=== PATIENT | male | born 1950 | race Caucasian/White ===

== ENCOUNTER 2017-04-27 15:32 | Observation (INO) | payer MEDICARE, OTHER ==
--- NOTE | 2017-04-27 16:51 | RAD ---
Indication: Dizziness. Single frontal view of the chest performed at 1637 hours was reviewed. Comparison is made with previous exam dated November 04, 2005. No mediastinal shift is noted. Heart is of normal size and configuration. Lung whitt appear clear. Lung whitt appear hyperinflated. IMPRESSION: NO ACTIVE CARDIOPULMONARY DISEASE IS NOTED.
[2017-04-27] MEDS ORDERED: NS 0.9% 1000 ML* 2,000 ML IV ONE (17:02)
[2017-04-27] MEDS: NS 0.9% 1000 ML* 1,000 ML IV SCH (17:30)
[2017-04-27 17:33] LABS: Hematocrit 41 % (42-52); Hemoglobin 13.7 g/dl (14.0-18.0); Mean Corpuscular HGB Conc 34 g/dl (31-36); Mean Corpuscular Hemoglobin 32 pg (27-31); Mean Corpuscular Volume 94 fL (80-94); Mean Platelet Volume 8 um3 (7.4-10.4); Red Blood Count 4.33 10^6/ul (4.0-5.4); Red Cell Distribution Width 14 % (10.5-15); White Blood Count 9.2 10^3/ul (3.5-10.8)
[2017-04-27 17:49] LABS: ALT 60 U/L (7-52); AST 47 U/L (13-39); Albumin 4.3 g/dL (3.2-5.2); Alkaline Phosphatase 53 U/L (34-104); Anion Gap 7 mmol/L (2-11); BUN/Creatinine Ratio 15.9 (8-20); Blood Urea Nitrogen 13 mg/dL (6-24); C Reactive Protein < 1.00 mg/L (< 5.00); CO2 Carbon Dioxide 27 mmol/L (22-32); Calcium 9.3 mg/dL (8.6-10.3); Chloride 106 mmol/L (101-111); EGFR African American 121.3 (>60); EGFR Non-African American 94.3 (>60); Globulin 2.7 g/dL (2-4); Glucose 99 mg/dL (70-100); Lipase 18 U/L (11.0-82.0); Magnesium 1.9 mg/dL (1.9-2.7); Potassium 4.1 mmol/L (3.5-5.0); Sodium 140 mmol/L (133-145)
[2017-04-27 18:18] LABS: TSH (Thyroid Stimulating Horm) 0.73 mcIU/mL (0.34-5.60)
[2017-04-27] MEDS ORDERED: NS 0.9% 1000 ML* 1,000 ML IV ONE (20:00)
[2017-04-27 20:52] LABS: Urine Bilirubin Negative (Negative); Urine Glucose Negative (Negative); Urine Nitrite Negative (Negative)
--- NOTE | 2017-04-27 21:38 | ED ---
Ghanshyam Arce Benjamin, scribed for Roderick Greco MD on 04/27/17 at 1714 . Syncope/Near Syncope - HPI Summary HPI Summary: 66yo male comes to ED after having a near syncopal episode today around 14:30 shortly after sudden position change from sitting to standing exertion. However , pt states that he didnt actually pass out. Pt also felt like heart racing, was shaking and having tremors, which have all lasted about 30 minutes. Per , pt was shaking so bad that he couldnt even sign his name on the paper. Per , pt had another near syncopal episode when he got off his car upon arrival to the hospital today. Pt also reports having unexplained diarrhea for the last couple of month, with the his last diarrhea being last week. Pt denies seeing any blood in his bowel. No acute rash or leg swelling reported. - History Of Current Complaint Chief Complaint: EDDizziness Time Seen by Provider: 04/27/17 16:39 Hx Obtained From: Patient, Family/Supervising Chef - Onset/Duration: Sudden Onset, Lasting Minutes - 30 min, Resolved Timing: Intermittent Episode Lasting - 30 min Context: Unwitnessed - first episode, Witnessed - second episode witnessed by Activity At Onset: Exertion Associated Head Trauma: No Aggravating Factor(s): Position Change, Exertion Alleviating Factor(s): Spontaneous Resolution, Rest Associated Signs And Symptoms: Other - tunneled vision - Allergies/Home Medications Allergies/Adverse Reactions: Allergies Allergy/AdvReac Type Severity Reaction Status Date / Time Mepivacaine [From Carbocaine] Allergy Unknown Verified 06/06/16 19:20 Reaction Details PMH/Surg Hx/FS Hx/Imm Hx Cardiovascular History: Denies: Hx Hypertension Infectious Disease History: No Infectious Disease History: Denies: Traveled Outside the [place] in Last 30 Days - Family History Known Family History: Negative: Hypertension, Blood Disorder - Social History Occupation: Employed Full-time Lives: With Family Alcohol Use: Daily Alcohol Amount: reports almost daily intake of 0.5-1 bottle "HARD LIQUOR" Substance Use Type: Reports: None Smoking Status (MU): Never Smoked Tobacco Review of Systems Constitutional: Negative Positive: Blurred Vision ENT: Negative Cardiovascular: Negative Respiratory: Negative Gastrointestinal: Negative Genitourinary: Negative Musculoskeletal: Negative Skin: Negative Positive: Headache, Weakness, Syncope - near Psychological: Normal All Other Systems Reviewed And Are Negative: Yes Physical Exam Triage Information Reviewed: Yes Vital Signs On Initial Exam: Initial Vitals Temp Pulse Resp BP Pulse Ox 99.1 F 82 20 117/83 100 04/27/17 15:38 04/27/17 15:38 04/27/17 15:38 04/27/17 15:38 04/27/17 15:38 Vital Signs Reviewed: Yes Appearance: Positive: Well-Appearing, No Pain Distress, Well-Nourished Skin: Positive: Warm, Skin Color Reflects Adequate Perfusion, Dry Head/Face: Positive: Normal Head/Face Inspection Eyes: Positive: EOMI, BERE ENT: Positive: Normal ENT inspection, Hearing grossly normal, Other - dry oral mucosa Neck: Positive: Supple, Nontender Respiratory/Lung Sounds: Positive: Clear to Auscultation, Breath Sounds Present Cardiovascular: Positive: RRR, Pulses are Symmetrical in both Upper and Lower Extremities. Negative: Leg Edema Left, Leg Edema Right Abdomen Description: Positive: Nontender, Soft Bowel Sounds: Positive: Present Musculoskeletal: Positive: Strength/ROM Intact Neurological: Positive: Sensory/Motor Intact, Alert, Oriented to Person Place, Time Psychiatric: Positive: Affect/Mood Appropriate - Giovanni Coma Scale Coma Scale Total: 15 Diagnostics - Vital Signs Vital Signs Temp Pulse Resp BP Pulse Ox 04/27/17 16:10 99.6 F 74 14 129/76 98 04/27/17 15:38 99.1 F 82 20 117/83 100 - Laboratory Lab Results: Lab Results 04/27/17 04/27/17 04/27/17 Range/Units 17:19 17:19 17:19 WBC (3.5-10.8) 10^3/ul RBC (4.0-5.4) 10^6/ul Hgb (14.0-18.0) g/dl Hct (42-52) % MCV (80-94) fL MCH (27-31) pg MCHC (31-36) g/dl RDW (10.5-15) % Plt Count (150-450) 10^3/ul MPV (7.4-10.4) um3 Neut % (Auto) (38-83) % Lymph % (Auto) (25-47) % Gage % (Auto) (1-9) % Eos % (Auto) (0-6) % Baso % (Auto) (0-2) % Absolute Neuts (auto) (1.5-7.7) 10^3/ul Absolute Lymphs (auto) (1.0-4.8) 10^3/ul Absolute Monos (auto) (0-0.8) 10^3/ul Absolute Eos (auto) (0-0.6) 10^3/ul Absolute Basos (auto) (0-0.2) 10^3/ul Absolute Nucleated RBC 10^3/ul Nucleated RBC % INR (Anticoag Therapy) 0.87 L (0.89-1.11) APTT 27.1 (26.0-36.3) seconds Sodium 140 (133-145) mmol/L Potassium 4.1 (3.5-5.0) mmol/L Chloride 106 (101-111) mmol/L Carbon Dioxide 27 (22-32) mmol/L Anion Gap 7 (2-11) mmol/L BUN 13 (6-24) mg/dL Creatinine 0.82 (0.67-1.17) mg/dL Est GFR ( Amer) 121.3 (>60) Est GFR (Non-Af Amer) 94.3 (>60) BUN/Creatinine Ratio 15.9 (8-20) Glucose 99 (70-100) mg/dL Lactic Acid (0.5-2.0) mmol/L Calcium 9.3 (8.6-10.3) mg/dL Magnesium 1.9 (1.9-2.7) mg/dL Total Bilirubin 0.50 (0.2-1.0) mg/dL AST 47 H (13-39) U/L ALT 60 H (7-52) U/L Alkaline Phosphatase 53 (34-104) U/L Troponin I 0.00 (<0.04) ng/mL C-Reactive Protein < 1.00 (< 5.00) mg/L B-Natriuretic Peptide 12 ( - 100) pg/mL Total Protein 7.0 (6.4-8.9) g/dL Albumin 4.3 (3.2-5.2) g/dL Globulin 2.7 (2-4) g/dL Albumin/Globulin Ratio 1.6 (1-3) Lipase 18 (11.0-82.0) U/L TSH 0.73 (0.34-5.60) mcIU/mL Urine Color Urine Appearance Urine pH (5-9) Ur Specific [place] (1.010-1.030) Urine Protein (Negative) Urine Ketones (Negative) Urine Blood (Negative) Urine Nitrate (Negative) Urine Bilirubin (Negative) Urine Urobilinogen (Negative) Ur Leukocyte Esterase (Negative) Urine Glucose (Negative) Urine Ascorbic Acid (Negative) 04/27/17 04/27/17 04/27/17 Range/Units 17:19 17:19 20:18 WBC 9.2 (3.5-10.8) 10^3/ul RBC 4.33 (4.0-5.4) 10^6/ul Hgb 13.7 L (14.0-18.0) g/dl Hct 41 L (42-52) % MCV 94 (80-94) fL MCH 32 H (27-31) pg MCHC 34 (31-36) g/dl RDW 14 (10.5-15) % Plt Count 282 (150-450) 10^3/ul MPV 8 (7.4-10.4) um3 Neut % (Auto) 78.7 (38-83) % Lymph % (Auto) 11.4 L (25-47) % Gage % (Auto) 8.1 (1-9) % Eos % (Auto) 1.3 (0-6) % Baso % (Auto) 0.5 (0-2) % Absolute Neuts (auto) 7.3 (1.5-7.7) 10^3/ul Absolute Lymphs (auto) 1.1 (1.0-4.8) 10^3/ul Absolute Monos (auto) 0.7 (0-0.8) 10^3/ul Absolute Eos (auto) 0.1 (0-0.6) 10^3/ul Absolute Basos (auto) 0 (0-0.2) 10^3/ul Absolute Nucleated RBC 0.01 10^3/ul Nucleated RBC % 0.1 INR (Anticoag Therapy) (0.89-1.11) APTT (26.0-36.3) seconds Sodium (133-145) mmol/L Potassium (3.5-5.0) mmol/L Chloride (101-111) mmol/L Carbon Dioxide (22-32) mmol/L Anion Gap (2-11) mmol/L BUN (6-24) mg/dL Creatinine (0.67-1.17) mg/dL Est GFR ( Amer) (>60) Est GFR (Non-Af Amer) (>60) BUN/Creatinine Ratio (8-20) Glucose (70-100) mg/dL Lactic Acid 1.0 (0.5-2.0) mmol/L Calcium (8.6-10.3) mg/dL Magnesium (1.9-2.7) mg/dL Total Bilirubin (0.2-1.0) mg/dL AST (13-39) U/L ALT (7-52) U/L Alkaline Phosphatase (34-104) U/L Troponin I (<0.04) ng/mL C-Reactive Protein (< 5.00) mg/L B-Natriuretic Peptide ( - 100) pg/mL Total Protein (6.4-8.9) g/dL Albumin (3.2-5.2) g/dL Globulin (2-4) g/dL Albumin/Globulin Ratio (1-3) Lipase (11.0-82.0) U/L TSH (0.34-5.60) mcIU/mL Urine Color Yellow Urine Appearance Clear Urine pH 6.0 (5-9) Ur Specific [place] 1.023 (1.010-1.030) Urine Protein Negative (Negative) Urine Ketones Trace H (Negative) Urine Blood Negative (Negative) Urine Nitrate Negative (Negative) Urine Bilirubin Negative (Negative) Urine Urobilinogen Negative (Negative) Ur Leukocyte Esterase Negative (Negative) Urine Glucose Negative (Negative) Urine Ascorbic Acid * H (Negative) 04/27/17 Range/Units 20:37 WBC (3.5-10.8) 10^3/ul RBC (4.0-5.4) 10^6/ul Hgb (14.0-18.0) g/dl Hct (42-52) % MCV (80-94) fL MCH (27-31) pg MCHC (31-36) g/dl RDW (10.5-15) % Plt Count (150-450) 10^3/ul MPV (7.4-10.4) um3 Neut % (Auto) (38-83) % Lymph % (Auto) (25-47) % Gage % (Auto) (1-9) % Eos % (Auto) (0-6) % Baso % (Auto) (0-2) % Absolute Neuts (auto) (1.5-7.7) 10^3/ul Absolute Lymphs (auto) (1.0-4.8) 10^3/ul Absolute Monos (auto) (0-0.8) 10^3/ul Absolute Eos (auto) (0-0.6) 10^3/ul Absolute Basos (auto) (0-0.2) 10^3/ul Absolute Nucleated RBC 10^3/ul Nucleated RBC % INR (Anticoag Therapy) (0.89-1.11) APTT (26.0-36.3) seconds Sodium (133-145) mmol/L Potassium (3.5-5.0) mmol/L Chloride (101-111) mmol/L Carbon Dioxide (22-32) mmol/L Anion Gap (2-11) mmol/L BUN (6-24) mg/dL Creatinine (0.67-1.17) mg/dL Est GFR ( Amer) (>60) Est GFR (Non-Af Amer) (>60) BUN/Creatinine Ratio (8-20) Glucose (70-100) mg/dL Lactic Acid (0.5-2.0) mmol/L Calcium (8.6-10.3) mg/dL Magnesium (1.9-2.7) mg/dL Total Bilirubin (0.2-1.0) mg/dL AST (13-39) U/L ALT (7-52) U/L Alkaline Phosphatase (34-104) U/L Troponin I 0.00 (<0.04) ng/mL C-Reactive Protein (< 5.00) mg/L B-Natriuretic Peptide ( - 100) pg/mL Total Protein (6.4-8.9) g/dL Albumin (3.2-5.2) g/dL Globulin (2-4) g/dL Albumin/Globulin Ratio (1-3) Lipase (11.0-82.0) U/L TSH (0.34-5.60) mcIU/mL Urine Color Urine Appearance Urine pH (5-9) Ur Specific [place] (1.010-1.030) Urine Protein (Negative) Urine Ketones (Negative) Urine Blood (Negative) Urine Nitrate (Negative) Urine Bilirubin (Negative) Urine Urobilinogen (Negative) Ur Leukocyte Esterase (Negative) Urine Glucose (Negative) Urine Ascorbic Acid (Negative) Result Diagrams: 04/27/17 17:19 04/27/17 17:19 Lab Statement: Any lab studies that have been ordered have been reviewed, and results considered in the medical decision making process. - Radiology CXR Xray Interpretation: No Acute Changes Radiology Interpretation Completed By: Radiologist - ED physician has reviewed this radiology report and agrees. - EKG 1724. Cardiac Rate: NL - 63bpm EKG Rhythm: Sinus Rhythm ST Segment: Normal Ectopy: None Re-Evaluation - Re-Evaluation First Eval Re-Evaluation Time: 21:22 Comment: Reviewed pts lab and imaging results with the pt. Course/Dx Course Of Treatment: Reviewed pts medication and allergy lists. Blood pressure noted. DISCUSSED RESULTS WITH PATIENT/. PATIENT DENIES ANY CHEST PAIN TODAY. PATIENT WILL F/U WITH PMD, WILL RETURN TO THE ED IF WORSE. NO CRITICAL CARE TIME. - Diagnoses Provider Diagnoses: Near syncope Discharge - Discharge Plan Condition: Stable Disposition: HOME Patient Education Materials: Syncope (ED) Referrals: Cheng Carbajal MD [Primary Care Provider] - Additional Instructions: FOLLOW UP WITH YOUR DOCTOR. RETURN TO THE EMERGENCY DEPARTMENT FOR ANY WORSENING OF YOUR CONDITION; CHEST PAIN, SHORTNESS OF BREATH, YOU FEEL LIKE YOU ARE GOING TO PASS OUT OR QUESTIONS OR CONCERNS. The documentation as recorded by the Ghanshyam le Benjamin accurately reflects the service I personally performed and the decisions made by me, Roderick Greco MD.
[2017-04-27] MEDS ORDERED: Acetaminophen TAB* 325 MG PO PRN (23:37)
[2017-04-27] MEDS ORDERED: traMADol TAB* 50 MG PO PRN (23:37)
[2017-04-27] MEDS ORDERED: Albuterol 2.5 MG/3 ML NEB.SOL* (0.083%) INH PRN (23:37)
[2017-04-27] MEDS ORDERED: Ondansetron INJ* 2 MG/ML VIAL IV PRN (23:37)
[2017-04-27] MEDS ORDERED: Melatonin (NF) 3 MG TAB PO PRN (23:37)
--- NOTE | 2017-04-28 00:17 | HP ---
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 This was associated with palpitations and sweating, but no chest pain, SOB, or N/V. EMS was summoned finding his vitals to be normal. Transport was recommended, but his arrived and drove him to the ED. He reports a smaller, similar episode while in the waiting room. Currently he is symptom free. While in ED he had orthostatic vitals taken after IVFs showing an increase in HR of 29 beats/min between lying and standing associated with an unsteady feeling, but no significant change in BP. PMedHx reactive arthritis HLD pneumonia seborrheic dermatitis Medications Nursing to reconcile. 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 Father passed in his 60s 2nd CAD. 2 sisters: alive in their 70s, no known illnesses ROS: as above, otherwise reviewed and all were negative Constitutional: NAD, normally developed, underweight white male vitals: Vital Signs Temp 37.6 C 04/27/17 16:10 Pulse 89 04/27/17 22:18 Resp 17 04/27/17 20:00 BP 122/74 04/27/17 22:18 Pulse Ox 99 04/27/17 20:00 Intake & Output 04/27/17 04/27/17 04/28/17 11:59 23:59 11:59 Intake Total 1000 Balance 1000 Weight 53.524 kg Intake: IV Fluids 1000 HEENM: atraumatic; sclera/conjunctiva: non-icteric/clear; hearing: clinically intact; oropharynx: clear, mucosa moist Neck: soft tissue: non-tender; thyroid: normal Pulmonary: clear to auscultation bilaterally, good aeration, no accessory muscle use CV: RR/RR, normal S1S2, no carotid bruit, no jugular venous distention, 2+ B DP/ PT, no edema Abdominal: soft, non-distended, non-tender, no rebound/guarding/rigidity, normoactive bowel sounds, no hepatosplenomegaly or masses, no costovertebral angle tenderness Musculoskeletal: general: grossly intact, no palpable tenderness Integumental: normal appearance and texture of exposed skin Psychiatric orientation: AA&O to PPS affect: mildly anxious mood: cooperative eye contact: fair content: reliable responses: timely insight: fair to good Testing: Lab Results 04/27/17 04/27/17 04/27/17 Range/Units 17:19 17:19 17:19 WBC (3.5-10.8) 10^3/ul RBC (4.0-5.4) 10^6/ul Hgb (14.0-18.0) g/dl Hct (42-52) % MCV (80-94) fL MCH (27-31) pg MCHC (31-36) g/dl RDW (10.5-15) % Plt Count (150-450) 10^3/ul MPV (7.4-10.4) um3 Neut % (Auto) (38-83) % Lymph % (Auto) (25-47) % Bulloch % (Auto) (1-9) % Eos % (Auto) (0-6) % Baso % (Auto) (0-2) % Absolute Neuts (auto) (1.5-7.7) 10^3/ul Absolute Lymphs (auto) (1.0-4.8) 10^3/ul Absolute Monos (auto) (0-0.8) 10^3/ul Absolute Eos (auto) (0-0.6) 10^3/ul Absolute Basos (auto) (0-0.2) 10^3/ul Absolute Nucleated RBC 10^3/ul Nucleated RBC % INR (Anticoag Therapy) 0.87 L (0.89-1.11) APTT 27.1 (26.0-36.3) seconds Sodium 140 (133-145) mmol/L Potassium 4.1 (3.5-5.0) mmol/L Chloride 106 (101-111) mmol/L Carbon Dioxide 27 (22-32) mmol/L Anion Gap 7 (2-11) mmol/L BUN 13 (6-24) mg/dL Creatinine 0.82 (0.67-1.17) mg/dL Est GFR ( Amer) 121.3 (>60) Est GFR (Non-Af Amer) 94.3 (>60) BUN/Creatinine Ratio 15.9 (8-20) Glucose 99 (70-100) mg/dL Lactic Acid (0.5-2.0) mmol/L Calcium 9.3 (8.6-10.3) mg/dL Magnesium 1.9 (1.9-2.7) mg/dL Total Bilirubin 0.50 (0.2-1.0) mg/dL AST 47 H (13-39) U/L ALT 60 H (7-52) U/L Alkaline Phosphatase 53 (34-104) U/L Troponin I 0.00 (<0.04) ng/mL C-Reactive Protein < 1.00 (< 5.00) mg/L B-Natriuretic Peptide 12 ( - 100) pg/mL Total Protein 7.0 (6.4-8.9) g/dL Albumin 4.3 (3.2-5.2) g/dL Globulin 2.7 (2-4) g/dL Albumin/Globulin Ratio 1.6 (1-3) Lipase 18 (11.0-82.0) U/L TSH 0.73 (0.34-5.60) mcIU/mL Urine Color Urine Appearance Urine pH (5-9) Ur Specific [place] (1.010-1.030) Urine Protein (Negative) Urine Ketones (Negative) Urine Blood (Negative) Urine Nitrate (Negative) Urine Bilirubin (Negative) Urine Urobilinogen (Negative) Ur Leukocyte Esterase (Negative) Urine Glucose (Negative) Urine Ascorbic Acid (Negative) 04/27/17 04/27/17 04/27/17 Range/Units 17:19 17:19 20:18 WBC 9.2 (3.5-10.8) 10^3/ul RBC 4.33 (4.0-5.4) 10^6/ul Hgb 13.7 L (14.0-18.0) g/dl Hct 41 L (42-52) % MCV 94 (80-94) fL MCH 32 H (27-31) pg MCHC 34 (31-36) g/dl RDW 14 (10.5-15) % Plt Count 282 (150-450) 10^3/ul MPV 8 (7.4-10.4) um3 Neut % (Auto) 78.7 (38-83) % Lymph % (Auto) 11.4 L (25-47) % Bulloch % (Auto) 8.1 (1-9) % Eos % (Auto) 1.3 (0-6) % Baso % (Auto) 0.5 (0-2) % Absolute Neuts (auto) 7.3 (1.5-7.7) 10^3/ul Absolute Lymphs (auto) 1.1 (1.0-4.8) 10^3/ul Absolute Monos (auto) 0.7 (0-0.8) 10^3/ul Absolute Eos (auto) 0.1 (0-0.6) 10^3/ul Absolute Basos (auto) 0 (0-0.2) 10^3/ul Absolute Nucleated RBC 0.01 10^3/ul Nucleated RBC % 0.1 INR (Anticoag Therapy) (0.89-1.11) APTT (26.0-36.3) seconds Sodium (133-145) mmol/L Potassium (3.5-5.0) mmol/L Chloride (101-111) mmol/L Carbon Dioxide (22-32) mmol/L Anion Gap (2-11) mmol/L BUN (6-24) mg/dL Creatinine (0.67-1.17) mg/dL Est GFR ( Amer) (>60) Est GFR (Non-Af Amer) (>60) BUN/Creatinine Ratio (8-20) Glucose (70-100) mg/dL Lactic Acid 1.0 (0.5-2.0) mmol/L Calcium (8.6-10.3) mg/dL Magnesium (1.9-2.7) mg/dL Total Bilirubin (0.2-1.0) mg/dL AST (13-39) U/L ALT (7-52) U/L Alkaline Phosphatase (34-104) U/L Troponin I (<0.04) ng/mL C-Reactive Protein (< 5.00) mg/L B-Natriuretic Peptide ( - 100) pg/mL Total Protein (6.4-8.9) g/dL Albumin (3.2-5.2) g/dL Globulin (2-4) g/dL Albumin/Globulin Ratio (1-3) Lipase (11.0-82.0) U/L TSH (0.34-5.60) mcIU/mL Urine Color Yellow Urine Appearance Clear Urine pH 6.0 (5-9) Ur Specific [place] 1.023 (1.010-1.030) Urine Protein Negative (Negative) Urine Ketones Trace H (Negative) Urine Blood Negative (Negative) Urine Nitrate Negative (Negative) Urine Bilirubin Negative (Negative) Urine Urobilinogen Negative (Negative) Ur Leukocyte Esterase Negative (Negative) Urine Glucose Negative (Negative) Urine Ascorbic Acid * H (Negative) 04/27/17 Range/Units 20:37 WBC (3.5-10.8) 10^3/ul RBC (4.0-5.4) 10^6/ul Hgb (14.0-18.0) g/dl Hct (42-52) % MCV (80-94) fL MCH (27-31) pg MCHC (31-36) g/dl RDW (10.5-15) % Plt Count (150-450) 10^3/ul MPV (7.4-10.4) um3 Neut % (Auto) (38-83) % Lymph % (Auto) (25-47) % [place]och % (Auto) (1-9) % Eos % (Auto) (0-6) % Baso % (Auto) (0-2) % Absolute Neuts (auto) (1.5-7.7) 10^3/ul Absolute Lymphs (auto) (1.0-4.8) 10^3/ul Absolute Monos (auto) (0-0.8) 10^3/ul Absolute Eos (auto) (0-0.6) 10^3/ul Absolute Basos (auto) (0-0.2) 10^3/ul Absolute Nucleated RBC 10^3/ul Nucleated RBC % INR (Anticoag Therapy) (0.89-1.11) APTT (26.0-36.3) seconds Sodium (133-145) mmol/L Potassium (3.5-5.0) mmol/L Chloride (101-111) mmol/L Carbon Dioxide (22-32) mmol/L Anion Gap (2-11) mmol/L BUN (6-24) mg/dL Creatinine (0.67-1.17) mg/dL Est GFR ( Amer) (>60) Est GFR (Non-Af Amer) (>60) BUN/Creatinine Ratio (8-20) Glucose (70-100) mg/dL Lactic Acid (0.5-2.0) mmol/L Calcium (8.6-10.3) mg/dL Magnesium (1.9-2.7) mg/dL Total Bilirubin (0.2-1.0) mg/dL AST (13-39) U/L ALT (7-52) U/L Alkaline Phosphatase (34-104) U/L Troponin I 0.00 (<0.04) ng/mL C-Reactive Protein (< 5.00) mg/L B-Natriuretic Peptide ( - 100) pg/mL Total Protein (6.4-8.9) g/dL Albumin (3.2-5.2) g/dL Globulin (2-4) g/dL Albumin/Globulin Ratio (1-3) Lipase (11.0-82.0) U/L TSH (0.34-5.60) mcIU/mL Urine Color Urine Appearance Urine pH (5-9) Ur Specific [place] (1.010-1.030) Urine Protein (Negative) Urine Ketones (Negative) Urine Blood (Negative) Urine Nitrate (Negative) Urine Bilirubin (Negative) Urine Urobilinogen (Negative) Ur Leukocyte Esterase (Negative) Urine Glucose (Negative) Urine Ascorbic Acid (Negative) ECG, personally reviewed: NSR rate 63, no ischemia CXR, personally reviewed: IMPRESSION: NO ACTIVE CARDIOPULMONARY DISEASE IS NOTED. Impression: 66M presenting with pre-syncopal symptoms of palpitations, sweating , and light-headedness DIAGNOSIS & PLAN Primary pre-syncope : telemetry : trend troponin : check d-dimer : IVFs : supportive care Secondary HLD : low fat diet Admission Rational: observation for pre-syncope work up DVTp: SCDs while in bed Code Status: full HCP:
[2017-04-28] MEDS: NS 0.9% 1000 ML* 1,000 ML IV SCH ×3 (01:11→11:59)
[2017-04-28] MEDS ORDERED: Omeprazole CAP* 20 MG PO SCH (06:00)
[2017-04-28] MEDS ORDERED: Docusate CAP* 100 MG PO SCH (09:00)
[2017-04-28] MEDS ORDERED: Thiamine TAB* 100 MG TAB PO SCH (12:00)
[2017-04-28] MEDS ORDERED: Vitamin THERAPEUTIC TAB PO SCH (12:00)
[2017-04-28] MEDS ORDERED: Folic Acid TAB* 1 MG PO SCH (12:00)
[2017-04-28] MEDS ORDERED: LORazepam INJ* 2 MG/ML 1 ML VIAL IV PUSH ONE (14:00)
[2017-04-28] MEDS ORDERED: LORazepam INJ* 2 MG/ML 1 ML VIAL IV PUSH PRN (14:55)
[2017-04-28 19:07] VITALS: BP 130/80
--- NOTE | 2017-04-29 08:43 | DS ---
DISCHARGE SUMMARY: DATE OF ADMISSION: 04/27/17 DATE OF DISCHARGE: 04/28/17 ADMITTING PHYSICIAN: Juan Tafoya MD ATTENDING PHYSICIAN: Clinton Tavarez MD PRIMARY CARE PROVIDER: Jose Rafael Carbajal MD CHIEF COMPLAINT: Palpitations, presyncope. PRIMARY DIAGNOSIS: Presyncope in the setting of dehydration and likely alcohol withdrawal. HISTORY OF PRESENT ILLNESS AND HOSPITAL COURSE: Mr. Solares is a 66-year-old male with a past medical history of alcohol abuse, hyperlipidemia, low BMI, reactive arthritis who presented with a chief complaint of presyncope. 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 He stood for approximately 20 seconds, but upon sitting down these symptoms did not improve and asked for further medical attention. He was taken to the emergency room at [facility] and noted to have tachycardia with an increase of 29 beats per minute, increased between lying and standing. His laboratory evaluation in the emergency room was significant for mild transaminitis with AST 47, ALT 60. Troponins were trended throughout admission with negative value 0.00 x3. His BNP was 12, TSH was 0.73. Urinalysis was positive for trace ketones. He had no leukocytosis. Hemoglobin was 13.7. He was monitored on telemetry overnight with no significant changes or arrhythmias. EKG was sinus bradycardia, rate of 52 on hospital day #2 with no ischemic changes. Further history provided on hospital day #2 included attestation that he drank approximately 4 alcoholic drinks, 1 to 2 nights a week. Has been having more frequent diarrhea and more frequent tremors in his upper extremities. He had a history of cranial nerve XII palsy about 30 years ago. Of note, the patient's step- daughter and pulled this attending physician aside and attested that the patient has been an alcoholic his entire adult life including a DUI 10 years ago that necessitated treatment for 3 months and a AA program. They attested that he has always denied the significance of this problem, avoids seeking medical treatment, but that this has driven a wedge between the marriage. Upon further questioning, the patient attested that his last drink was Monday, day before and again said that he only drinks about twice a week, 4 to 5 drinks in a session, and attested that he no longer drinks as much as he did in the past. He feels this alcohol use would not create acute symptoms of withdrawal. He was quite tremulous and agitated appearing throughout the day of hospital day #2 and given his symptoms of diarrhea, tremulousness, agitation, poor p.o. intake with BMI 16.4, likely dehydration in the setting of what he even admits as poor solid food intake. The patient was given 1 mg of Ativan for alcohol withdrawal. The patient's tremulousness markedly improved, seemed less agitated. A long and brian conversation was had with Mr. Solares about concern for this provider about his alcohol use and its effect on his life. He attested that he has a good friend, a criminal judge who has provided him private counselling before including his prior treatment episode 10 years ago and that he felt this would be the most effective use of his time compared to other options like Alcohol Anonymous or other social support/rehabilitation facilities. Of note, the patient in his professional role as a weaving supervisor provides many referrals to these programs and is somewhat skeptical of their ultimate treatment success rate. The patient walked in the [place] with improvement after the Ativan was given. He will be discharged home with outpatient prescription for folate, thiamine, and multivitamin with a strong encouragement for continued alcohol cessation treatment programs and a follow up with is primary care doctor. DISPOSITION: Home. DIET: Regular diet, strict avoidance of alcohol is recommended. Discharge medications (all new): folate 1mg po daily thiamine 100mg po daily multivitamin [id number]/[facility] #: [id number]
== END 2017-04-28 19:15 | disposition home or self-care (01) ==
LOC: ED 15:32 → MEDTELE 23:36
PROVIDERS: ADMIT Hospitalist; ATTEND Internal Medicine
DX: R55 Syncope and collapse (principal); E86.0 Dehydration; F10.239 Alcohol dependence with withdrawal, unspecified; E78.5 Hyperlipidemia, unspecified; R00.2 Palpitations; R42 Dizziness and giddiness; H53.489 Generalized contraction of visual field, unspecified eye; R00.1 Bradycardia, unspecified; Z68.1 Body mass index [BMI] 19.9 or less, adult; R53.1 Weakness; R51 Headache; R61 Generalized hyperhidrosis
CPT/HCPCS: 36415; 71010; 80053; 81003; 83605; 83690; 83735; 83880; 84443; 84484; 85025; 85379; 85610; 85730; 86140; 93005; 96360; 96361; 99284; A9270-GY; G0378; J2060

== ENCOUNTER 2018-01-10 19:42 | Emergency (ER) | payer MEDICARE, OTHER ==
[2018-01-10] MEDS ORDERED: Tetan/Diph/Pertus SYR(Tdap)* 0.5 ML SYR(BOOSTRIX) use SYR IM ONE (20:55)
[2018-01-10] MEDS ORDERED: Lidocaine 2% 10 ML* VIAL INJ ONE (20:58)
[2018-01-10] MEDS ORDERED: Lidocaine 2% PF * 5 ML VIAL ONE (20:59)
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
[2018-01-10 21:41] VITALS: BP 111/50
== END 2018-01-10 21:55 | disposition home or self-care (01) ==
LOC: ED 19:42
DX: S01.81XA Laceration without foreign body of other part of head, initial encounter (principal); W19.XXXA Unspecified fall, initial encounter; Y93.K1 Activity, walking an animal; Y92.9 Unspecified place or not applicable; Z23 Encounter for immunization
CPT/HCPCS: 12011; 90471; 90715; 99283